=== PATIENT | female | born 1955 | race Caucasian/White ===

== ENCOUNTER 2016-10-19 09:45 | Inpatient (IN) | payer OTHER, BC ==
[2016-10-26] MEDS ORDERED: LIDOCAINE 1% 5 ML SDV ID PRN (06:14)
[2016-10-26] MEDS ORDERED: LR 1,000 ML IV ONE (06:14)
[2016-10-26] MEDS ORDERED: LIDOCAINE 1% 2 ML INJ ONE (06:18)
[2016-10-26] MEDS ORDERED: THROMBIN (BOVINE) 5,000 UNIT VIAL TP ONE (06:34)
[2016-10-26] MEDS ORDERED: BUPIVACAINE/EPI 0.25% 30 ML SDV ONE (06:34)
[2016-10-26] MEDS ORDERED: BACITRACIN 50,000 UNITS/10 ML SYR IRR ONE (06:34)
[2016-10-26 06:40] LABS: % IMMATURE GRANULYOCYTES 0.3 % (0.0-1.1); ABSOLUTE IMMATURE GRANULOCYTES 0.02 10^3/uL (0.00-0.10); ADD DIFF? NO; ADD MORPH? NO; ADD SCAN? NO; ATYPICAL LYMPHOCYTE FLAG 30 (0-99); FRAGMENT RBC FLAG 0 (0-99); HEMOGLOBIN 13.3 g/dL (12.6-16.3); LEFT SHIFT FLG 0 (0-99); LIPEMIA HEMOLYSIS FLAG 80 (0-99); MEAN CELL HEMOGLOBIN 31.5 pg (27.9-34.1); MEAN CELL HEMOGLOBIN CONCENTR. 33.3 g/dL (32.4-36.7); MEAN CELL VOLUME 94.8 fL (81.5-99.8); MEAN PLATELET VOLUME 10.7 fL (8.7-11.7); PLATELET CLUMPS FLAG 0 (0-99); PLATELET COUNT 234 10^3/uL (150-400); RED BLOOD CELL COUNT 4.22 10^6/uL (4.18-5.33); RED CELL DISTRIBUTION WIDTH 12.8 % (11.5-15.2)
[2016-10-26] MEDS ORDERED: PROPOFOL 200 MG/20 ML VIAL ONE (06:52)
[2016-10-26] MEDS ORDERED: fentaNYL 250 MCG/5 ML INJ ONE (06:52)
[2016-10-26] MEDS ORDERED: PROPOFOL/EMULSION 500 MG/50 ML BOTTLE IV ONE ×3 (06:54→09:32)
[2016-10-26] MEDS ORDERED: REMIFENTANIL HCL 1 MG VIAL ONE ×3 (06:55)
[2016-10-26] MEDS ORDERED: MIDAZOLAM 2 MG/2 ML VIAL ONE (07:15)
[2016-10-26] MEDS ORDERED: ROCURONIUM 50 MG/5 ML VIAL ONE (07:23)
[2016-10-26] MEDS ORDERED: DEXAMETHASONE 4 MG/ML VIAL ONE (07:23)
[2016-10-26] MEDS ORDERED: ONDANSETRON 4 MG/2 ML VIAL ONE (07:23)
[2016-10-26] MEDS ORDERED: LIDOCAINE 2% 5 ML SDV ONE (07:23)
[2016-10-26] MEDS ORDERED: DEXAMETHASONE 10 MG/ML VIAL IVP ONE (08:00)
[2016-10-26] MEDS ORDERED: ceFAZolin 2 GM/DEXTROSE 100 ML IV ONE (08:00)
[2016-10-26] MEDS ORDERED: HYDROmorphONE/DILAUDID 2 MG/ML INJ ONE ×4 (08:13→11:17)
[2016-10-26] MEDS ORDERED: SUGAMMADEX SODIUM 200 MG/2 ML VIAL IVP ONE (09:57)
[2016-10-26] MEDS ORDERED: BISACODYL 10 MG SUPP PR PRN (10:02)
[2016-10-26] MEDS ORDERED: LACTULOSE 20 GM/30 ML UDCUP PO PRN (10:02)
[2016-10-26] MEDS ORDERED: MAGNESIUM HYDROXIDE 30 ML UDCUP PO PRN (10:02)
[2016-10-26] MEDS ORDERED: DIAZEPAM 5 MG TAB PO PRN (10:02)
[2016-10-26] MEDS ORDERED: ACETAMINOPHEN 325 MG TAB PO PRN (10:02)
[2016-10-26] MEDS ORDERED: ONDANSETRON DISINTEGRATING 4 MG TAB PO PRN (10:02)
[2016-10-26] MEDS ORDERED: DIAZEPAM 10 MG/2 ML SYR IVP PRN (10:02)
[2016-10-26] MEDS ORDERED: diphenhydrAMINE 25 MG CAP PO PRN (10:02)
[2016-10-26] MEDS ORDERED: ONDANSETRON 4 MG/2 ML VIAL IVP PRN (10:02)
--- NOTE | 2016-10-26 10:07 | SOAPPROG ---
SOAP Progress Note Assessment/Plan: Assessment: 61 yo F sp C4-6 ACDF Plan: stable x-rays in am hard collar at all times PT/OT please call with neuro changes to 3n 10/26/16 10:06 Subjective: + neck pain, no arm pain. Objective: Laboratory Results 10/26/16 06:30 somnolent PERRL, no facial droop 5/5 + light touch ICD10 Worksheet Patient Problems: Problems Problem Status Onset Fusion of spine of cervical region Acute - ICD10 Problem Qualifiers (1) Fusion of spine of cervical region
[2016-10-26] MEDS ORDERED: NS W/ 20 KCl/L 1,000 ML IV SCH (10:15)
[2016-10-26] MEDS ORDERED: DIAZEPAM 10 MG/2 ML SYR ONE (10:16)
--- NOTE | 2016-10-26 10:57 | GOP ---
[f rep st] OPERATIVE REPORT DATE OF OPERATION: 10/26/2016 SURGEON: Willain Zamora MD [employer] SUPERVISOR: NAKITA Miranda. ANESTHESIA: General endotracheal. PREOPERATIVE DIAGNOSIS: 1. Multilevel cervical spondylitic myelopathy. 2. Severe cervical degenerative disk disease with disk herniation and central canal stenosis with s lian cord compression. 3. Severe right C6 neural foraminal encroachment. 4. Failed conservative care. POSTOPERATIVE DIAGNOSIS: 1. Multilevel cervical spondylitic myelopathy. 2. Severe cervical degenerative disk disease with disk herniation and central canal stenosis with s lian cord compression. 3. Severe right C6 neural foraminal encroachment. 4. Failed conservative care. PROCEDURE PERFORMED: 1. Mini open exposure for complete C4-5 and C5-6 anterior cervical diskectomy and arthrodesis with two 11 mm structural allograft spacers and local autograft. 2. Placement of a 45 mm CastleLoc-P LnK anterior cervical plate with self-drilling screws. 3. Use of intraoperative microscopy and fluoroscopy. 4. Partial C5 vertebral corpectomy. FINDINGS: ESTIMATED BLOOD LOSS: 50 cc. INDICATIONS: The patient is a 61-year-old woman with progressive multilevel cervical spondylitic my elopathy secondary to multilevel cervical degenerative disk disease and disk herniations, with sever e central canal stenosis and spinal cord compression, as well as right-sided C6 neural foraminal enc roachment and a right C6 radiculopathy. The patient has failed extensive conservative care and pres ents now for surgical decompression and stabilization. DESCRIPTION OF PROCEDURE: After informed consent was obtained, the patient was taken to the operati ng room and placed in the supine position with the head in the halter retractor system. The anterio r cervical region was prepped and draped in a sterile fashion. After fluoroscopic localization of c orrect levels, the subcutaneous and intramuscular tissues were infiltrated with local anesthesia. A horizontal incision was then created at the level of the C5 vertebral body. This was carried throu gh the platysmal layer using monopolar electrocautery and carried in the avascular plane between the sternocleidomastoid and carotid sheath laterally and the strap muscles, trachea, and esophagus medi ally down to the prevertebral fascia, which was carefully incised with Metzenbaum scissors. The C4- 5 and C5-6 interspaces were identified and re-verified using intraoperative fluoroscopy. The Howe distraction pins were then inserted and under high-power microscopic visualization complete C4-5 an d C5-6 diskectomies were performed with preparation of the endplates and removal of the posterior lo ngitudinal ligament. There were very large irregular lesions in the endplates and small nodes that required extensive drilling, as well as from the posteriorly protruding osteophytes into the canal. This amounted to removal of the vertebral body at C5, as well as the inferior aspect of C4 and the superior aspect of C6. This amounted to a partial C5 vertebral corpectomy. Following this, the wou nd and disk spaces were copiously irrigated with antibiotic irrigation and meticulous hemostasis was achieved. The remaining endplates were carefully prepared and large 11 mm lordotically fashioned s tructural allograft spacers were then placed in the C4-5 and C5-6 interspaces under fluoroscopic mamadou ge guidance. The distraction was removed and an appropriately sized 45 mm CastleLoc-P LnK anterior cervical plate was then placed and secured with self-drilling screws. The locking mechanism was the n engaged after re-verification of good position of the plate screws and interbody spacers using bip lanar fluoroscopy. The uncovertebral joints were then gently packed with the residual local autogra ft from the osteophytectomy and partial corpectomy. The 2-hole plate was also gently packed with au tograft. Following this, a drain was placed. The subcutaneous and intramuscular tissues were re-in filtrated with local anesthesia and the wound was closed in a layered fashion using interrupted Vicr yl sutures followed by Steri-Strips on the skin. COMPLICATIONS: None. DISPOSITION: The patient is currently in the process of being repositioned for extubation. /[id number]/MODL
[2016-10-26] MEDS ORDERED: fentaNYL 100 MCG/2 ML INJ ONE (11:17)
[2016-10-26] MEDS: HYDROmorphONE/DILAUDID 1 MG/ML SYR IVP PRN ×2 (12:47→19:51)
[2016-10-26] MEDS ORDERED: IPRATROPIUM/ALBUTEROL 4GM MDI IH PRN (13:13)
[2016-10-26] MEDS ORDERED: BACLOFEN 10 MG TAB PO PRN (13:13)
[2016-10-26] MEDS: HYDROmorphONE/DILAUDID 4 MG TAB PO PRN ×2 (14:30→21:15)
[2016-10-26] MEDS: POLYETHYLENE GLYCOL 3350 17 GM PKT PO SCH ×2 (16:32→19:54)
[2016-10-26] MEDS: Pentosan Polysulfate Sodium [Elmiron] 100 MG PO SCH ×2 (16:32→21:15)
[2016-10-26] MEDS: HYDROCODONE/APAP 10/325 TAB PO PRN (16:36)
[2016-10-26] MEDS: DIAZEPAM 5 MG TAB PO PRN ×2 (17:37→23:36)
[2016-10-26] MEDS: OXYMORPHONE HCL 30 MG PO SCH (19:51)
[2016-10-26] MEDS: FAMOTIDINE 20 MG TAB PO SCH (19:54)
[2016-10-26] MEDS: SENNOSIDES/DOCUSATE SODIUM TAB PO SCH (19:54)
[2016-10-26] MEDS ORDERED: DULoxetine 30 MG CAP PO SCH (21:00)
[2016-10-26] MEDS ORDERED: QUEtiapine FUMARATE 100 MG TAB PO SCH (21:00)
[2016-10-26] MEDS ORDERED: FAMOTIDINE 20 MG/NACL 50 ML IV SCH (21:00)
[2016-10-26] MEDS: FLUTICASONE/SALMETER 250/50MCG DISKUS IH SCH (21:15)
[2016-10-26] MEDS: VARENICLINE TARTRATE 1 MG TAB PO SCH (21:25)
[2016-10-27] MEDS: HYDROmorphONE/DILAUDID 4 MG TAB PO PRN ×2 (03:20→08:28)
[2016-10-27] MEDS: Pentosan Polysulfate Sodium [Elmiron] 100 MG PO SCH ×2 (06:12→11:48)
[2016-10-27] MEDS: DIAZEPAM 5 MG TAB PO PRN ×3 (06:12→15:15)
[2016-10-27] MEDS: HYDROCODONE/APAP 10/325 TAB PO PRN ×3 (06:12→15:14)
--- NOTE | 2016-10-27 07:56 | NEUSURGPN ---
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 Incision c/d/i. NATHAN serosanguineous - Physician Discussed Patient with : [facility] Physical Exam - Vitals, I&O, Labs I and O 10/26/16 10/27/16 10/28/16 05:59 05:59 05:59 Intake Total 3850 Output Total 3295 Balance 555 Intake: Oral (ml) 1200 IV Intake (ml) 2000 IV Infused (ml) 650 NS W/ 20 KCl/L 1,000 ml @ 450 75 mls/hr IV CONT RODRICK Rx #:[id number] ceFAZolin 2 GM/DEXTROSE 200 100 ml @ 200 mls/hr IV ONCALL ONE Rx#:[id number] Output: Urine (ml) 3100 Bedpan 200 Bedside Commode 2900 Estimated Blood Loss (ml) 100 Wound Drainage (ml) 95 #1 Anterior Neck Andres 95 Sin Other: Number of Voids Bedside Commode 1 Vital Signs Temp Pulse Resp BP Pulse Ox 36.3 C 95 18 153/100 H 94 10/27/16 03:22 10/27/16 03:22 10/27/16 03:22 10/27/16 03:22 10/27/16 03:22 Laboratory Results 10/26/16 06:30 ICD10 Worksheet Patient Problems: Problems Problem Status Onset Fusion of spine of cervical region Acute
[2016-10-27] MEDS: FAMOTIDINE 20 MG TAB PO SCH (08:28)
[2016-10-27] MEDS: POLYETHYLENE GLYCOL 3350 17 GM PKT PO SCH ×2 (08:28→15:13)
[2016-10-27] MEDS: OXYMORPHONE HCL 30 MG PO SCH (08:28)
[2016-10-27] MEDS: SENNOSIDES/DOCUSATE SODIUM TAB PO SCH (08:28)
[2016-10-27] MEDS: CEPACOL LOZENGE PO PRN ×2 (08:29→11:36)
[2016-10-27] MEDS: FLUTICASONE/SALMETER 250/50MCG DISKUS IH SCH (10:37)
[2016-10-27] MEDS: VARENICLINE TARTRATE 1 MG TAB PO SCH (11:02)
[2016-10-27 11:55] VITALS: BP 158/89; PULSE 103; RESP 16; TEMP 98; O2SAT 88
[2016-10-29] MEDS ORDERED: ENOXAPARIN 40 MG/0.4 ML SYR SC SCH (09:00)
== END 2016-10-27 15:55 | disposition home or self-care (01) | DRG 473 ==
LOC: F3N 10-26 05:39
PROVIDERS: ADMIT Neurological Surgery; ATTEND Neurological Surgery
DX: M47.12 Other spondylosis with myelopathy, cervical region (principal); M50.30 Other cervical disc degeneration, unspecified cervical region; R13.10 Dysphagia, unspecified; J44.9 Chronic obstructive pulmonary disease, unspecified; G89.29 Other chronic pain; Z96.612 Presence of left artificial shoulder joint; G51.0 Bell's palsy
CPT/HCPCS: 92610-GN; 97161-GP; 97165-GO; C1713; C1762; G8978-GP-CI; G8979-GP-CI; G8980-GP-CI; G8987-GO-CI; G8988-GO-CI; G8989-GO-CI; G8996-GN-CI; G8997-GN-CI; J0690; J1100; J1170; J2250; J2405; J2704; J3010